=== PATIENT | male | born 1960 | race Caucasian/White ===

== ENCOUNTER → 2016-08-18 | Outpatient (CLI) | payer BC ==
[2016-08-18 08:24] LABS: Basophils % (A) 1 %; CH 31.9; CHCM 32.3; Eosinophils # (A) 0.2 k/uL (0-0.7); Eosinophils % (A) 4 %; HCT 48.1 % (39.0-53.0); HDW 2.26; HGB 15.1 gm/dL (13.0-17.5); Luc # (Auto) 0.09; Luc % (Auto) 2; Lymphocytes # (A) 1.8 k/uL (1.0-4.8); Lymphocytes % (A) 32 %; MCH 31.2 pg (25.0-35.0); MCHC 31.4 g/dL (31.0-37.0); MCV 99.3 fL (80.0-100.0); Mean Platelet Volume 7.2; Monocytes # (A) 0.4 k/uL (0-1.0); Monocytes % (A) 7 %; Neutrophils # (A) 3.1 k/uL (1.3-7.7); Neutrophils % (A) 55 %; RBC 4.85 m/uL (4.30-5.90); RDW 13.1 % (11.5-15.5); WBC 5.7 k/uL (3.8-10.6); WBC (Perox) 5.41
[2016-08-18 08:35] LABS: ALT 33 U/L (21-72); AST 22 U/L (17-59); Alkaline Phosphatase 43 U/L (38-126); Anion Gap 8 mmol/L; Blood Urea Nitrogen 22 mg/dL (9-20); Carbon Dioxide 32 mmol/L (22-30); Chloride 104 mmol/L (98-107); Cholesterol 153 mg/dL (<200); Glucose 99 mg/dL (74-99); HDL Cholesterol 37 mg/dL (40-60); Non-African American GFR(MDRD) >60 (>60 ml/min/1.73 sqM); Potassium 4.3 mmol/L (3.5-5.1); Sodium 144 mmol/L (137-145); Total Bilirubin 0.8 mg/dL (0.2-1.3); Total Protein 7.2 g/dL (6.3-8.2); Triglycerides 98 mg/dL (<150)
== END | disposition home or self-care (01) ==
LOC: LABWHC1 08:08
PROVIDERS: ATTEND Family Medicine
DX: Z00.00 Encounter for general adult medical examination without abnormal findings (principal); Z13.220 Encounter for screening for lipoid disorders; Z13.1 Encounter for screening for diabetes mellitus
CPT/HCPCS: 36415; 80053; 80061; 85025

== ENCOUNTER 2017-07-14 10:35 | Emergency (ER) | payer BC ==
--- NOTE | 2017-07-14 12:05 | XR ---
EXAMINATION TYPE: XR hand complete LT DATE OF EXAM: 07/14/2017 COMPARISON: NONE HISTORY: Laceration fifth digit TECHNIQUE: Three-view left hand FINDINGS: No acute osseous abnormality is evident. Proximal interphalangeal joint space may has some mild diffuse narrowing. Soft tissue injury over the medial proximal phalanx fifth digit is present. Punctate density is prese nt at the subcutaneous level may be a small foreign body. Underlying osseous structures appear intact . IMPRESSION: 1. Soft tissue injury medial proximal fifth digit. 2. Punctate density within the soft tissues may be a foreign body.
--- NOTE | 2017-07-14 12:15 | ED ---
Wound/Laceration HPI - General Chief Complaint: Wound/Laceration Stated Complaint: LAC ON LEFT PINKIE FINGER Time Seen by Provider: 07/14/17 10:56 Source: patient, RN notes reviewed, old records reviewed Mode of arrival: ambulatory Limitations: no limitations - History of Present Illness Initial Comments: This patient is a 56 year old male with CC of laceration over left 5th digit. He was carrying equipment down stairs and his hand got caught betwee the equipement and wall and finger was smashed. Patient has full ROM and reports that his tetanus is up to date. Denies any numbess or tingling down the finger. Patient is left handed. - Related Data Home Medications Medication Instructions Recorded Confirmed [place]-3 Fatty Acids/Fish Oil [Fish 1 cap PO DAILY 07/14/17 07/14/17 Oil 1,000 mg Softgel] Allergies Allergy/AdvReac Type Severity Reaction Status Date / Time No Known Allergies Allergy Verified 07/14/17 11:21 Review of Systems ROS Statement: Those systems with pertinent positive or pertinent negative responses have been documented in the HPI. ROS Other: All systems not noted in ROS Statement are negative. Past Medical History Past Medical History: Deep Vein Thrombosis (DVT) History of Any Multi-Drug Resistant Organisms: None Reported Past Surgical History: Tonsillectomy Past Psychological History: No Psychological Hx Reported Smoking Status: Never smoker Past Alcohol Use History: None Reported Past Drug Use History: None Reported General Exam - General Exam Comments Initial Comments: This is a well appearing 56 year old mle. Limitations: no limitations General appearance: alert, in no apparent distress Head exam: Present: atraumatic, normocephalic, normal inspection Eye exam: Present: normal appearance, PERRL, EOMI. Absent: scleral icterus, conjunctival injection, periorbital swelling ENT exam: Present: normal exam, mucous membranes moist Neck exam: Present: normal inspection. Absent: tenderness, meningismus, lymphadenopathy Respiratory exam: Present: normal lung sounds bilaterally. Absent: respiratory distress, wheezes, rales, rhonchi, stridor Cardiovascular Exam: Present: regular rate, normal rhythm, normal heart sounds. Absent: systolic murmur, diastolic murmur, rubs, gallop, clicks Extremities exam: Present: normal inspection, full ROM, normal capillary refill. Absent: tenderness, pedal edema, joint swelling, calf tenderness Left Elbow exam: Present: normal inspection, full ROM Forearm Wrist exam: Present: normal inspection, full ROM Hand Wrist exam: Present: full ROM, laceration (3 cm flap laceration over left fifth finger proximal lateral aspect. ). Absent: normal inspection Back exam: Present: normal inspection Neurological exam: Present: alert, oriented X3, CN II-XII intact Psychiatric exam: Present: normal affect, normal mood Course Vital Signs 07/14/17 07/14/17 10:48 12:45 Temperature 98 F 98.6 F Pulse Rate 71 76 Respiratory 16 18 Rate Blood Pressure 133/81 122/71 O2 Sat by Pulse 97 97 Oximetry Procedures - Laceration Laceration #1 Site: hand (left fifth finger, ) Size (cm): 3 Description: flap Depth: simple, single layer Anesthetic Used: lidocaine 1% Anesthesia Technique: local infiltration Amount (mls): 4 Pre-repair: wound explored, irrigated extensively Type of Sutures: nylon Size of Sutures: 5-0 Number of Sutures: 8 Technique: simple, interrupted Complications: pain Patient Tolerated Procedure: well, no complications Medical Decision Making - Medical Decision Making Patient presents with a 3cm flap laceration over left fifth finger on PIP joint. Patient xray reviewd no fracture, he has full ROM. Patient wound was thoroughly irrigated with saline and betadine. Wound was well approximated with 8 sutures, and dressed and placed in a splint. He states that his tetanus is up to date. Discussed wound care instructions and suture removal. All questions answered and return parameters discussed. - Radiology Data Radiology results: report reviewed soft tissue injury medial proximal fifth digit. Punctate density within the soft tissues may be foreign body. Disposition Clinical Impression: Finger laceration Disposition: HOME SELF-CARE Condition: Good Instructions: Finger Laceration (ED) Additional Instructions: Please return to the emergency room in 8-10 days to have sutures removed. Please leave wound covered for the first 24-48 hours and then leave open to air after that time. Please use clean soap and water to clean the suture area to prevent scabbing over the top of your sutures. Please watch for any signs of infection which may include but not limited to increased pain, swelling, redness , fever or chills. Please return to the emergency room if any signs of infection do occur. Please return to the emergency room for any other concerns or complications. Referrals: Chad Hernandez MD [Primary Care Provider] - 1-2 days Time of Disposition: 12:14
[2017-07-14 13:02] VITALS: BP 122/71; PULSE 76; RESP 18; TEMP 98.6
== END 2017-07-14 13:00 | disposition home or self-care (01) ==
LOC: EC 10:35
DX: S61.217A Laceration without foreign body of left little finger without damage to nail, initial encounter (principal); W23.1XXA Caught, crushed, jammed, or pinched between stationary objects, initial encounter; Y93.89 Activity, other specified
CPT/HCPCS: 99283

== ENCOUNTER → 2017-08-09 | Outpatient (CLI) | payer BC ==
[2017-08-09 08:35] LABS: Basophils % (A) 1 %; Eosinophils # (A) 0.2 k/uL (0-0.7); Eosinophils % (A) 3 %; HCT 46.1 % (39.0-53.0); HGB 15.6 gm/dL (13.0-17.5); Lymphocytes # (A) 1.9 k/uL (1.0-4.8); Lymphocytes % (A) 27 %; MCH 30.9 pg (25.0-35.0); MCHC 33.9 g/dL (31.0-37.0); MCV 91.1 fL (80.0-100.0); Mean Platelet Volume 7.2; Monocytes # (A) 0.5 k/uL (0-1.0); Monocytes % (A) 7 %; Neutrophils # (A) 4.3 k/uL (1.3-7.7); Neutrophils % (A) 60 %; Platelet Count 250 k/uL (150-450); RBC 5.06 m/uL (4.30-5.90); RDW 12.6 % (11.5-15.5); WBC 7.1 k/uL (3.8-10.6)
[2017-08-09 08:57] LABS: ALT 26 U/L (21-72); AST 18 U/L (17-59); Alkaline Phosphatase 53 U/L (38-126); Anion Gap 11 mmol/L; Blood Urea Nitrogen 23 mg/dL (9-20); Calcium 9.5 mg/dL (8.4-10.2); Carbon Dioxide 28 mmol/L (22-30); Chloride 106 mmol/L (98-107); Cholesterol 148 mg/dL (<200); Glucose 102 mg/dL (74-99); HDL Cholesterol 30 mg/dL (40-60); LDL Cholesterol,Calculated 82 mg/dL (0-99); Potassium 4.3 mmol/L (3.5-5.1); Sodium 145 mmol/L (137-145); Total Bilirubin 0.5 mg/dL (0.2-1.3); Total Protein 6.8 g/dL (6.3-8.2); Triglycerides 178 mg/dL (<150)
== END | disposition home or self-care (01) ==
LOC: LABWHC1 08:11
PROVIDERS: ATTEND Family Medicine
DX: Z00.00 Encounter for general adult medical examination without abnormal findings (principal); Z13.220 Encounter for screening for lipoid disorders; Z13.1 Encounter for screening for diabetes mellitus; Z79.899 Other long term (current) drug therapy
CPT/HCPCS: 36415; 80053; 80061; 85025

== ENCOUNTER → 2018-08-29 | Outpatient (CLI) | payer BC ==
[2018-08-29 10:22] LABS: Basophils % (A) 0 %; Eosinophils # (A) 0.2 k/uL (0-0.7); Eosinophils % (A) 4 %; HCT 47.7 % (39.0-53.0); HGB 15.4 gm/dL (13.0-17.5); Lymphocytes # (A) 1.6 k/uL (1.0-4.8); Lymphocytes % (A) 28 %; MCH 30.1 pg (25.0-35.0); MCHC 32.2 g/dL (31.0-37.0); MCV 93.5 fL (80.0-100.0); Monocytes # (A) 0.4 k/uL (0-1.0); Monocytes % (A) 8 %; Neutrophils # (A) 3.3 k/uL (1.3-7.7); Neutrophils % (A) 59 %; Platelet Count 271 k/uL (150-450); RDW 13.5 % (11.5-15.5); WBC 5.6 k/uL (3.8-10.6)
[2018-08-29 17:04] LABS: ALT 27 U/L (10-49); AST 22 U/L (14-35); Albumin/Globulin Ratio 2.44 (1.60-3.17); Alkaline Phosphatase 50 U/L (41-126); Calcium 9.5 mg/dL (8.7-10.3); Carbon Dioxide 27.3 mmol/L (21.6-31.8); Chloride 107 mmol/L (96-109); Cholesterol 127 mg/dL (0-200); Globulin 1.8 g/dL (1.6-3.3); Glucose 86 mg/dL (70-110); Potassium 4.5 mmol/L (3.5-5.5); Sodium 142 mmol/L (135-145); Total Bilirubin 0.8 mg/dL (0.3-1.2); Total Protein 6.2 g/dL (6.2-8.2); Triglycerides <50.0 mg/dL (0.0-149.0); VLDL Calculation 9.98 mg/dL (5.00-40.00)
== END ==
LOC: LABWHC1 08:56
PROVIDERS: ATTEND Family Medicine
DX: Z00.00 Encounter for general adult medical examination without abnormal findings (principal); Z13.220 Encounter for screening for lipoid disorders; Z13.1 Encounter for screening for diabetes mellitus
CPT/HCPCS: 36415; 80053; 80061; 85025

== ENCOUNTER → 2020-09-06 | Outpatient (CLI) | payer BC ==
[2020-09-06 17:00] LABS: Basophils # (A) 0.04 X 10*3/uL (0.00-0.10); Basophils % (A) 0.7 %; Eosinophils # (A) 0.27 X 10*3/uL (0.04-0.35); HCT 46.2 % (39.6-50.0); HGB 14.8 g/dL (13.0-17.0); Lymphocytes # (A) 1.82 X 10*3/uL (0.90-5.00); Lymphocytes % (A) 33.9 %; MCH 30.9 pg (27.0-32.0); MCV 96.5 fL (80.0-97.0); Mean Platelet Volume 11.8 fL (9.5-12.2); Monocytes # (A) 0.56 X 10*3/uL (0.20-1.00); Monocytes % (A) 10.4 %; Neutrophils # (A) 2.66 X 10*3/uL (1.80-7.70); Neutrophils % (A) 49.6 %; Platelet Count 257 X 10*3/uL (140-440); RBC 4.79 X 10*6/uL (4.40-5.60); RDW 13.3 % (11.5-14.5); WBC 5.37 X 10*3/uL (4.50-10.00)
[2020-09-06 19:13] LABS: African American GFR (CKD) 107.2 (60.0-200.0); Albumin 4.2 g/dL (3.80-4.90); Albumin/Globulin Ratio 1.83 (1.60-3.17); Anion Gap 7.1 mmol/L (4.00-12.00); BUN/Creat Ratio 12.22 Ratio (12.00-20.00); Calcium 9.2 mg/dL (8.7-10.3); Carbon Dioxide 26.9 mmol/L (21.6-31.8); Chol/HDL Ratio 4.82; Globulin 2.3 g/dL (1.6-3.3); Non-African American GFR(CKD) 92.5 (60.0-200.0); Potassium 4.2 mmol/L (3.5-5.5); Total Bilirubin 0.7 mg/dL (0.2-1.2); Total Protein 6.5 g/dL (6.2-8.2)
== END | disposition home or self-care (01) ==
LOC: LABWHC1 07:00
PROVIDERS: ATTEND Family Medicine
DX: Z00.00 Encounter for general adult medical examination without abnormal findings (principal); Z13.220 Encounter for screening for lipoid disorders; Z13.1 Encounter for screening for diabetes mellitus; Z13.0 Encounter for screening for diseases of the blood and blood-forming organs and certain disorders involving the immune mechanism
CPT/HCPCS: 36415; 80053; 80061; 85025

== ENCOUNTER → 2021-08-25 | Outpatient (CLI) | payer BC ==
[2021-08-25 10:30] LABS: Basophils # (A) 0.04 X 10*3/uL (0.00-0.10); Basophils % (A) 0.7 %; Eosinophils # (A) 0.27 X 10*3/uL (0.04-0.35); Eosinophils % (A) 4.8 %; HCT 46.6 % (39.6-50.0); HGB 15.2 g/dL (13.0-17.0); Immature Grans, Automated 0.2 %; Lymphocytes # (A) 1.54 X 10*3/uL (0.90-5.00); Lymphocytes % (A) 27.5 %; MCHC 32.6 g/dL (32.0-37.0); MCV 94.9 fL (80.0-97.0); Mean Platelet Volume 11.7 fL (9.5-12.2); Monocytes # (A) 0.57 X 10*3/uL (0.20-1.00); Monocytes % (A) 10.2 %; NRBC Per 100 WBC 0 /100 WBCS (0.0-0.0); Neutrophils # (A) 3.18 X 10*3/uL (1.80-7.70); Neutrophils % (A) 56.6 %; Platelet Count 275 X 10*3/uL (140-440); RBC 4.91 X 10*6/uL (4.40-5.60); RDW 12.9 % (11.5-14.5); WBC 5.61 X 10*3/uL (4.50-10.00)
[2021-08-25 10:41] LABS: ALT 19 U/L (10-49); AST 22 U/L (14-35); African American GFR (CKD) 111.7 (60.0-200.0); Albumin 4.6 g/dL (3.8-4.9); Albumin/Globulin Ratio 1.77 (1.60-3.17); Alkaline Phosphatase 53 U/L (41-126); BUN/Creat Ratio 20.38 Ratio (12.00-20.00); Blood Urea Nitrogen 16.3 mg/dL (9.0-27.0); Calcium 9.4 mg/dL (8.7-10.3); Carbon Dioxide 23.8 mmol/L (20.0-27.5); Chloride 105 mmol/L (96-109); Chol/HDL Ratio 3.39 Ratio; Globulin 2.6 g/dL (1.6-3.3); Glucose 95 mg/dL (70-110); Non-African American GFR(CKD) 96.4 (60.0-200.0); Potassium 4.2 mmol/L (3.5-5.5); Sodium 140 mmol/L (135-145); Total Protein 7.2 g/dL (6.2-8.2); VLDL Calculation 13.78 mg/dL (5.00-40.00)
== END | disposition home or self-care (01) ==
LOC: LABWHC1 07:00
PROVIDERS: ATTEND Family Medicine
DX: Z00.00 Encounter for general adult medical examination without abnormal findings (principal); Z13.1 Encounter for screening for diabetes mellitus; Z13.0 Encounter for screening for diseases of the blood and blood-forming organs and certain disorders involving the immune mechanism; Z13.220 Encounter for screening for lipoid disorders
CPT/HCPCS: 36415; 80053; 80061; 85025

== ENCOUNTER → 2022-09-22 | Outpatient (CLI) | payer BC ==
[2022-09-23 00:12] LABS: Basophils # (A) 0.05 X 10*3/uL (0.00-0.10); Basophils % (A) 0.8 %; Eosinophils # (A) 0.27 X 10*3/uL (0.04-0.35); Eosinophils % (A) 4.5 %; HCT 46.4 % (39.6-50.0); HGB 14.8 g/dL (13.0-17.0); Immature Grans, Automated 0.2 %; Lymphocytes # (A) 1.49 X 10*3/uL (0.90-5.00); Lymphocytes % (A) 24.6 %; MCH 30.6 pg (27.0-32.0); MCHC 31.9 g/dL (32.0-37.0); MCV 96.1 fL (80.0-97.0); Mean Platelet Volume 12.9 fL (9.5-12.2); Monocytes # (A) 0.51 X 10*3/uL (0.20-1.00); Monocytes % (A) 8.4 %; NRBC Per 100 WBC 0 /100 WBCS (0.0-0.0); Neutrophils # (A) 3.73 X 10*3/uL (1.80-7.70); Neutrophils % (A) 61.5 %; Platelet Count 197 X 10*3/uL (140-440); RBC 4.83 X 10*6/uL (4.40-5.60); RDW 12.9 % (11.5-14.5); WBC 6.06 X 10*3/uL (4.50-10.00)
[2022-09-23 07:35] LABS: ALT 15 U/L (10-49); AST 16 U/L (14-35); African American GFR (CKD) 109.2 (60.0-200.0); Albumin 4.2 g/dL (3.8-4.9); Albumin/Globulin Ratio 1.72 (1.60-3.17); Alkaline Phosphatase 48 U/L (41-126); BUN/Creat Ratio 18.05 Ratio (12.00-20.00); Calcium 9.3 mg/dL (8.7-10.3); Carbon Dioxide 27.6 mmol/L (20.0-27.5); Chloride 105 mmol/L (96-109); Globulin 2.4 g/dL (1.6-3.3); Glucose 94 mg/dL (70-110); Non-African American GFR(CKD) 94.3 (60.0-200.0); Potassium 4.2 mmol/L (3.5-5.5); Sodium 141 mmol/L (135-145); Total Protein 6.6 g/dL (6.2-8.2)
[2022-09-23 07:36] LABS: Chol/HDL Ratio 3.46 Ratio; LDL Cholesterol,Calculated 98.4 mg/dL (0.0-131.0); VLDL Calculation 16.76 mg/dL (5.00-40.00)
== END | disposition home or self-care (01) ==
LOC: LABWHC1 08:53
PROVIDERS: ATTEND Family Medicine
DX: Z13.220 Encounter for screening for lipoid disorders (principal); Z13.1 Encounter for screening for diabetes mellitus; Z13.6 Encounter for screening for cardiovascular disorders
CPT/HCPCS: 36415; 80053; 80061; 85025

== ENCOUNTER → 2023-10-04 | Outpatient (CLI) | payer BC ==
[2023-10-04 10:39] LABS: Basophils # (A) 0.04 X 10*3/uL (0.00-0.10); Basophils % (A) 0.8 %; Eosinophils # (A) 0.22 X 10*3/uL (0.04-0.35); Eosinophils % (A) 4.3 %; HCT 45.3 % (39.6-50.0); HGB 14.8 g/dL (13.0-17.0); Lymphocytes # (A) 1.46 X 10*3/uL (0.90-5.00); Lymphocytes % (A) 28.5 %; MCH 31.2 pg (27.0-32.0); MCHC 32.7 g/dL (32.0-37.0); MCV 95.6 FL (80.0-97.0); Mean Platelet Volume 10.8 FL (9.5-12.2); Monocytes % (A) 9.8 %; NRBC Per 100 WBC 0 X 10*3/uL (0.00-0.01); Neutrophils # (A) 2.89 X 10*3/uL (1.80-7.70); Neutrophils % (A) 56.4 %; Platelet Count 246 X 10*3/uL (140-440); RBC 4.74 X 10*6/uL (4.40-5.60); RDW 13.5 % (11.5-14.5); WBC 5.12 X 10*3/uL (4.50-10.00)
[2023-10-04 10:44] LABS: ALT 16 U/L (10-49); AST 20 U/L (14-35); Albumin 4.4 g/dL (3.8-4.9); Albumin/Globulin Ratio 1.76 Ratio (1.60-3.17); Alkaline Phosphatase 45 U/L (41-126); BUN/Creat Ratio 15.88 Ratio (12.00-20.00); Blood Urea Nitrogen 12.7 mg/dL (9.0-27.0); Calcium 9.4 mg/dL (8.7-10.3); Carbon Dioxide 27.1 mmol/L (21.6-31.8); Chloride 106 mmol/L (96-109); Globulin 2.5 g/dL (1.6-3.3); Glucose 94 mg/dL (70-110); LDL Cholesterol,Calculated 114.2 mg/dL (0.0-131.0); Potassium 3.9 mmol/L (3.5-5.5); Sodium 143 mmol/L (135-145); Total Protein 6.9 g/dL (6.2-8.2); VLDL Calculation 11.54 mg/dL (5.00-40.00)
== END | disposition home or self-care (01) ==
LOC: LABWHC1 07:08
PROVIDERS: ATTEND Family Medicine
DX: Z00.00 Encounter for general adult medical examination without abnormal findings (principal); Z13.220 Encounter for screening for lipoid disorders; Z79.899 Other long term (current) drug therapy
CPT/HCPCS: 36415; 80053; 80061; 85025